=== PATIENT | female | born 1980 | race Hispanic/Latino ===

== ENCOUNTER 2022-05-05 11:52 | Emergency (ER) | payer SELFPAY ==
[2022-05-05 12:08] VITALS: BP 125/82; PULSE 84; RESP 14; TEMP 36.4; O2SAT 100
--- NOTE | 2022-05-05 12:43 | PC.NURSE ---
bedside done at 1240. Negative reading.
[2022-05-05 12:45] LABS: Appearance Urine Slightly Cloudy (Clear); Bilirubin Urine Negative (Negative); Blood Urine 2+ (Negative); Color Urine Yellow (Yellow); Glucose Urine UA Negative (Negative); Ketones Urine Negative (Negative); Leukocyte Esterase Ur 3+ LEU/UL (Negative); Nitrate Urine Negative (Negative); Protein Urine 1+ mg/dL (Negative); Specific Grav Ur 1.015 (1.001-1.035); Urobilinogen Urine 0.2 mg/dL (<2.0); pH Urine 5.5 (5.0-9.0)
[2022-05-05 12:48] LABS: Mucus Urine Rare /lpf; RBC Urine 51-75 /hpf (0-2); Squamous Epithelial Cell Urine Few /hpf (Few); WBC Urine >75 /hpf
[2022-05-05 12:55] LABS: Add Urine Microscopic? YES
--- NOTE | 2022-05-05 13:58 | ED.FEMALEGU ---
HPI - Female Genitourinary General Chief complaint: Urogenital-Female Stated complaint: painful urination Time Seen by Provider: 05/05/22 12:19 History of Present Illness HPI Narrative: 41-year-old female presents the emergency room with multiple medical complaints. Patient states that yesterday she began experiencing suprapubic tenderness and a burning sensation when she urinated. Patient also complaining of 3 weeks of occasionally spitting up blood first thing in the morning. Patient is unaware as to where the blood was coming from. Patient does endorse living in a very dry environment with no humidifier. Patient states she only notices the spots of blood that she coughs up in the morning. Related Data Allergies Allergy/AdvReac Type Severity Reaction Status Date / Time No Known Allergies Allergy Verified 05/05/22 12:35 Review of Systems Review of Systems: CONSTITUTIONAL: Denies fever, chills, or sweats. EYES: Denies visual changes, redness, or discharge. ENT: Denies rhinorrhea, congestion, sore throat, or otalgia. CARDIOVASCULAR: Denies chest pain, palpitations, or edema. RESPIRATORY: Denies cough or dyspnea. GASTROINTESTINAL: Denies abdominal pain, nausea, vomiting, or diarrhea. GENITOURINARY: Reports dysuria SKIN: Denies rash or itching. MUSCULOSKELETAL: Denies back pain, joint pain, or myalgia. NEUROLOGIC: Denies headache, numbness, dizziness, or weakness. PSYCHIATRIC: Denies anxiety or depression. Exam Narrative: GENERAL: Well-appearing, well-nourished, no physical limitations, and in no acute distress. HEAD: Normocephalic, atraumatic. EYES: Conjunctivae normal, PERRLA and EOMI. CHEST: Clear to auscultation. No respiratory distress. No wheezes rales or rhonchi. No tenderness. HEART: Regular rate and rhythm. No murmur heard. Normal peripheral pulses. ABDOMEN: Soft, suprapubic tenderness, nondistended, normal active bowel sounds. BACK: No CVA tenderness EXTREMITIES: Normal range of motion. No edema. No clubbing or cyanosis SKIN: Warm, dry, no rash. No noted wounds NEURO: No focal deficits. Alert and oriented x3. MAEW. CN's II-XI intact bilaterally, normal gait PSYCH: Cooperative. Normal mood and affect. Course Vital Signs Vital signs: Vital Signs Temperature 36.4 C 05/05/22 12:08 Pulse Rate 84 05/05/22 12:08 Respiratory Rate 14 05/05/22 12:08 Blood Pressure 125/82 05/05/22 12:08 Pulse Oximetry 100 05/05/22 12:08 Oxygen Delivery Room Air 05/05/22 12:08 Temperature 36.4 C 05/05/22 12:08 Pulse Rate 84 05/05/22 12:08 Respiratory Rate 14 05/05/22 12:08 Blood Pressure 125/82 05/05/22 12:08 Pulse Oximetry 100 05/05/22 12:08 Oxygen Delivery Room Air 05/05/22 12:08 MDM - Female Genitourinary Lab Data Labs: Lab Results 05/05/22 Range/Units 12:39 Urine Color Yellow (Yellow) Urine Appearance Slightly cloudy (Clear) Urine pH 5.5 (5.0-9.0) Ur Specific [place] 1.015 (1.001-1.035) Urine Protein 1+ H (Negative) mg/dL Urine Glucose (UA) Negative (Negative) mg/dL Urine Ketones Negative (Negative) mg/dL Ur Blood (Man) 2+ H (Negative) Urine Nitrate Negative (Negative) Urine Bilirubin Negative (Negative) Urine Urobilinogen 0.2 (<2.0) mg/dL Leukocyte Esterase Rfl 3+ H (Negative) TYLER/UL Urine RBC 51-75 H (0-2) /hpf Urine WBC >75 H /hpf Ur Squamous Epith Cells Few (Few) /hpf Urine Mucus Rare /lpf Urine Characteristics Clear Discharge Plan Discharge Clinical Impression: Urinary tract infection Patient Disposition: Home, Self-Care Condition: Stable Instructions: Antibiotic Form, Acute Urinary Retention in Women (ED) Prescriptions: New nitrofurantoin monohyd/m-cryst [Macrobid] 100 mg capsule 100 mg PO Q12H 5 Days Qty: 10 0RF Rx Instructions: must administer with a meal/food phenazopyridine [Azo Urinary Pain Relief] 95 mg t
== END 2022-05-05 15:09 | disposition home or self-care (01) ==
PROVIDERS: Emergency Provider Nurse Practitioner Family
DX: N39.0 Urinary tract infection, site not specified (principal)
CPT/HCPCS: 81001; 87086; 87088; 99283